=== PATIENT | female | born 1990 | race Caucasian/White ===

== ENCOUNTER 2023-08-11 06:44 | Inpatient (IN) | payer BC, SELFPAY ==
[2023-08-11] VITALS (9 sets, daily range): BP systolic 102–114; BP diastolic 63–79; PULSE 83–106; RESP 14–22; TEMP 36.3–36.7; O2SAT 92–100; BMI 24.8
--- NOTE | ~2023-08-11 | XR_ITS ---
XR abdomen gastric tube insert INDICATION: Evaluate NG tube position. TECHNIQUE: Limited KUB perform for evaluating NG tube . COMPARISON: CT dated 08/11/2023 FINDINGS: NG tube tip in the stomach. Visualized bowel gas pattern is unremarkable. IMPRESSION: 1: NG tube tip in the stomach. Reviewed, dictated and finalized at location B.
--- NOTE | ~2023-08-11 | CT_ITS ---
EXAMINATION: CT abdomen pelvis w con DATE: 08/11/2023 07:38 INDICATION: Bilateral lower quadrant pain TECHNIQUE: Computed tomography (CT) of the abdomen and pelvis was performed with 100 cc Omnipaque 350 intravenous contrast. The dose-length product was 318.54 mGy-cm. Automated exposure control and iter ative reconstruction technique were employed. COMPARISON: CT dated 08/13/2007 FINDINGS: Lung bases unremarkable. Heart size normal. No significant pleural or pericardial effusion. Status post cholecystectomy. There are dilated small bowel loops with air-fluid levels. The distal s mall bowel is decompressed. There is a possible transition in the upper central pelvis, axial image 1 04. There are surgical clips in the right lower abdomen, possibly from prior appendectomy. No acute o sseous abnormality. IMPRESSION: 1. Small bowel obstruction with possible transition in the upper central pelvis anteriorly. Reviewed, dictated and finalized at location B.
--- NOTE | ~2023-08-11 | XR_ITS ---
Small Bowel Series: Clinical history non-small obstruction Serial films demonstrating passage of barium from the duodenum to the colon show a normal small chase l mucosal pattern. There was no evidence of obstruction, mass lesion or inflammatory change. Oral co ntrast reaches large bowel by 2 hours postingestion. No extrinsic abnormality is identified. Impression: No significant abnormality. Reviewed, dictated and finalized at [facility]. Impression: No significant abnormality.
[2023-08-11 07:06] LABS: Basophils Percent Auto 0.7 % (0.2-1.2); Eosinophils Absolute Auto 0.2 K/mm3 (0-0.3); Eosinophils Percent Auto 3.1 % (0-4.4); Hematocrit 37.3 % (37.0-47.0); Hemoglobin 12.4 g/dL (12.0-15.0); Immature Granulocyte Absolute 0.01 K/mm3 (0.00-0.031); Immature Granulocyte Percent A 0.2 % (0-0.5); Lymphocytes Absolute Auto 1.14 K/mm3 (0.9-3.2); Lymphocytes Percent Auto 21.1 % (18.3-44.2); Mean Corpuscular HGB Conc 33.2 g/dl (32-36); Mean Corpuscular Hemoglobin 30.7 pg (26-34); Mean Corpuscular Volume 92.3 fl (80-100); Mean Platelet Volume 10.4 fl (7.4-10.4); Monocytes Absolute Auto 0.4 K/mm3 (0.1-0.6); Monocytes Percent Auto 7.6 % (2.6-8.5); Neutrophils Absolute Auto 3.6 K/mm3 (1.3-6.7); Neutrophils Percent Auto 67.3 % (45.5-73.1); Platelet Count Result 255 k/mm3 (150-375); Red Blood Count 4.04 M/mm3 (4.2-5.4); Red Cell Distribution Width 12.8 % (11.5-14.5); White Blood Count 5.4 K/mm3 (4.5-10.0)
[2023-08-11 07:17] LABS: Alanine Aminotransferase 16 U/L (6-35); Albumin Level 4.4 g/dL (3.5-5.1); Alkaline Phosphatase 61 U/L (38-126); Anion Gap 9 mmol/L (4-12); Aspartate Amino Transferase 20 U/L (14-36); Bilirubin,Total 1.1 mg/dL (0.2-1.3); Blood Urea Nitrogen 14 mg/dL (7-17); Calcium 9.1 mg/dL (8.4-10.2); Carbon Dioxide 22 mmol/L (22-30); Chloride 109 mmol/L (98-107); Estimated CRCL calculation 81 ml/min; Estimated Glomerular Filt Rate > 60; Glucose 101 mg/dL (65-110); Lipase 137 U/L (23-300); Potassium 3.9 mmol/L (3.4-5.0); Sodium 140 mmol/L (137-145)
[2023-08-11] MEDS: ONDANSETRON INJ 4 MG/2 ML VIAL IV PUSH ×4 (07:18→20:04)
[2023-08-11] MEDS: MORPHINE SULFATE (*CRX) 4 MG/ML INJ IV PUSH ×3 (07:19→20:04)
[2023-08-11 08:05] LABS: Appearance Urine Turbid (Clear); Bacteria Urine None Seen /hpf; Bilirubin Urine Negative (Negative); Blood Urine Negative (Negative); Color Urine Yellow (Yellow); Glucose Urine UA Negative (Negative); Ketones Urine Negative (Negative); Leukocyte Esterase Ur Negative LEU/UL (Negative); Nitrate Urine Negative (Negative); Non Pathogenic Casts 0-2; Protein Urine Negative (Negative); RBC Urine 0-2 /hpf (0-2); Squamous Epithelial Cell Urine None Seen /hpf (Few); WBC Urine 0-5 /hpf (0-3); pH Urine 7.5 (5.0-9.0)
[2023-08-11 08:12] LABS: Add Urine Microscopic? YES; Specific Grav Ur > 1.045 (1.001-1.035)
--- NOTE | 2023-08-11 08:22 | ED.ABDPAIN ---
HPI - Abdominal Pain General Chief Complaint: Abdominal Pain Stated Complaint: abd pain Time Seen by Provider: 08/11/23 06:58 History of Present Illness HPI narrative: Patient is a 33-year-old female who presents ER with abdominal pain. Sudden onset after drinking coffee this morning. She then took Mylanta which made it worse. Cramping. She did have a bowel movement this morning. No fevers or chills or sweats. She has had a cholecystectomy in the past. Pain radiates down into the lower abdomen. Related Data Home Medications Medication Instructions Recorded Confirmed bupropion HCl 150 mg 24 hr tablet, 150 mg PO DAILY 08/11/23 08/11/23 extended release melatonin 3 mg tablet 3 mg PO HS PRN Insomnia 08/11/23 08/11/23 topiramate 100 mg tablet 100 mg PO HS 08/11/23 08/11/23 Allergies Allergy/AdvReac Type Severity Reaction Status Date / Time lamotrigine [From Lamictal] Allergy Rash Verified 08/11/23 06:52 Review of Systems Review of Systems: All systems reviewed & are unremarkable except as noted in HPI and below Constitutional: Constitutional: Reports no additional constitutional complaints ENT: Reports system reviewed and no additional complaints, except as documented Cardiovascular: Cardiovascular: Reports no additional cardiovascular complaints Respiratory: Respiratory: Reports no additional respiratory complaints Gastrointestinal: Gastrointestinal: Reports abdominal pain, Denies diarrhea, Denies nausea and Denies vomiting Musculoskeletal: Musculoskeletal: Reports no additional musculoskeletal complaints PMF Past Medical History Medical History (Updated 08/11/23 @ 16:39 by Delbert Rosales MD) Healthy female adult Surgical History Surgical History (Updated 08/11/23 @ 16:39 by Delbert Rosales MD) History of cholecystectomy Social History Social History Smoking status: Never smoker Alcohol intake: never Substance use: never Substance use type: does not use Do You Feel Safe in your Home?: Yes Lack of Transportation: No Lack of Food: Never True Current Housing: I Have Housing Concerned About Future Housing: No Difficulty Paying Gas/Electric Bills: No Difficulty Paying for Meds: No Currently Unemployed: No Education: Associate Degree Difficulty w/ Childcare or Family Care: No Spiritual care concerns: No Exam Narrative: GENERAL: Well-appearing, well-nourished, and in no acute distress. HEAD: Normocephalic, atraumatic. ENT: Mucous membranes moist. NECK: Supple. CHEST: Clear to auscultation. No respiratory distress. HEART: Regular rate and rhythm. Normal peripheral pulses. ABDOMEN: Soft, mild diffuse tenderness worse in the lower quadrants the abdomen, nondistended. EXTREMITIES: Normal range of motion. No edema. SKIN: Warm, dry, no rash. NEURO: No focal deficits. Alert and oriented x3. PSYCH: Normal mood and affect. Course Course Emergency Course: surgery will admit primarily. Patient still with pain so NG tube will be placed. Vital Signs Vital signs: Vital Signs Temperature 97.4 F L 08/11/23 06:52 Pulse Rate 89 08/11/23 06:52 Respiratory Rate 16 08/11/23 06:52 Blood Pressure 110/78 08/11/23 06:52 Pulse Oximetry 100 08/11/23 06:52 Oxygen Delivery Room Air 08/11/23 06:52 Temperature 97.6 F 08/11/23 14:00 Pulse Rate 83 08/11/23 14:00 Respiratory Rate 14 08/11/23 14:00 Blood Pressure 110/70 08/11/23 14:00 Pulse Oximetry 100 08/11/23 14:00 Oxygen Delivery Room Air 08/11/23 06:52 MDM - Abdominal Pain Lab Data 08/11/23 07:00 08/11/23 07:00 Labs: Lab Results 08/11/23 08/11/23 Range/Units 07:00 07:53 WBC 5.4 (4.5-10.0) K/mm3 RBC 4.04 L (4.2-5.4) M/mm3 Hgb 12.4 (12.0-15.0) g/dL Hct 37.3 (37.0-47.0) % MCV 92.3 (80-100) fl MCH 30.7 (26-34) pg MCHC 33.2 (32-36) g/dl RD
[2023-08-11] MEDS: SODIUM CHLORIDE 0.9% IV 1,000 ML 125 ML IV CONT ×2 (08:42→20:04)
--- NOTE | 2023-08-11 09:38 | ADMGEN ---
This patient, Tonya Santana, was admitted to [address] [facility] Surg Room 326-01. Patient/family oriented to hospital policies and general routines including ID bracelet, bed and alarms, visiting hours, pain management, procedures, bathroom and other care routines, personal items, smoking policy, room service/diet, and visiting hours. Information on how to activate the Rapid Response Team has been discussed. Patient/Family are encouraged to report perceived risks to care and to ask questions if they do not understand what they are told or what they should do.
--- NOTE | 2023-08-11 12:57 | PM.IMHP ---
H&P: HPI History of Present Illness Date/Time: 08/11/23 12:57 Chief Complaint: abdominal pain Narrative: The patient is a 33-year-old female presenting to the emergency department complaining of crampy abdominal pain. The patient reports that the pain been ongoing for the last few days and progressively worsening. The patient reports associated nausea vomiting, poor appetite. The patient reports she had a bowel movement this morning. The patient reports decreased flatus. Workup, including imaging, was significant for small bowel obstruction. The patient with a history of previous cholecystectomy. The patient denies previous episodes. Review of Systems Review of Systems: All systems reviewed & are unremarkable except as noted in HPI and below PMFSH Social History Social History Smoking status: Never smoker Alcohol intake: never Substance use: never Substance use type: does not use Do You Feel Safe in your Home?: Yes Lack of Transportation: No Lack of Food: Never True Current Housing: I Have Housing Concerned About Future Housing: No Difficulty Paying Gas/Electric Bills: No Difficulty Paying for Meds: No Currently Unemployed: No Education: Associate Degree Difficulty w/ Childcare or Family Care: No Spiritual care concerns: No Meds Home Medications and Allergies Home Medications Medication Instructions Recorded Confirmed Type bupropion HCl 150 mg 24 hr tablet, 150 mg PO DAILY 08/11/23 08/11/23 History extended release melatonin 3 mg tablet 3 mg PO HS PRN Insomnia 08/11/23 08/11/23 History topiramate 100 mg tablet 100 mg PO HS 08/11/23 08/11/23 History Allergies Allergy/AdvReac Type Severity Reaction Status Date / Time lamotrigine [From Lamictal] Allergy Rash Verified 08/11/23 06:52 Vital Signs Vital Signs - 24 hr 08/11/23 06:52 08/11/23 06:54 08/11/23 07:01 Temperature 36.3 C L Pulse Rate 89 106 H 83 Respiratory Rate 16 22 H 15 Blood Pressure 110/78 110/78 110/78 Pulse Oximetry 100 100 92 Oxygen Delivery Room Air 08/11/23 08:58 08/11/23 09:00 08/11/23 09:02 Temperature Pulse Rate 105 H 97 100 Respiratory Rate 17 17 14 Blood Pressure 107/76 112/79 Pulse Oximetry 100 Oxygen Delivery 08/11/23 09:30 Temperature 36.6 C Pulse Rate 83 Respiratory Rate 14 Blood Pressure 102/63 Pulse Oximetry 100 Oxygen Delivery Exam Const: General: cooperative, comfortable, no acute distress and average body habitus HENMT: Head: normal to inspection, normocephalic and atraumatic Eyes: General: appearance normal, both eyes and all related structures Neck: Neck: normal visual inspection, full ROM and no lymphadenopathy Resp: Auscultation: clear to auscultation bilaterally Cardio: Rate: regular rate Rhythm: regular rhythm GI: Inspection: normal to inspection and distended GI Palp: Yes abdominal tenderness, Yes Soft to palpation, Yes Tenderness to palpation present (GI), No Guarding due to palpation present (GI) and No Rigid due to palpation Skin: General skin exam: normal color and no rashes or lesions noted Neuro: General: patient oriented x3 and CN's II-XI intact bilaterally Extrem: General: normal to inspection and full ROM H&P: Results Labs Labs: Short CBC 08/11/23 Range/Units 07:00 WBC 5.4 (4.5-10.0) K/mm3 Hgb 12.4 (12.0-15.0) g/dL Hct 37.3 (37.0-47.0) % Plt Count 255 (150-375) k/mm3 BMP 08/11/23 07:00 Sodium 140 Potassium 3.9 Chloride 109 H Carbon Dioxide 22 BUN 14 Creatinine 0.70 Glucose 101 Calcium 9.1 Liver Function 08/11/23 Range/Units 07:00 Total Bilirubin 1.1 (0.2-1.3) mg/dL AST 20 (14-36) U/L ALT 16 (6-35) U/L Alkaline Phosphatase 61 (38-126) U/L Albumin 4.4 (3.5-5.1) g/dL Urine 08/11/23 Range/Units 07:53 Urine Color Yellow (Yellow) Urine Appearance Turbid H (Clear) Urine p
[2023-08-12] MEDS: MORPHINE SULFATE (*CRX) 4 MG/ML INJ IV PUSH (04:00)
[2023-08-12] MEDS: ONDANSETRON INJ 4 MG/2 ML VIAL IV PUSH ×2 (04:00→08:50)
[2023-08-12 04:51] VITALS: BP 97/60; PULSE 79; RESP 14; TEMP 36.2; O2SAT 100
[2023-08-12] MEDS: SODIUM CHLORIDE 0.9% IV 1,000 ML 125 ML IV CONT ×3 (05:00→20:49)
[2023-08-12] MEDS: ACETAMINOPHEN 325 MG TABLET 650 MG PO ×2 (08:47→20:48)
--- NOTE | 2023-08-12 10:09 | PM.PNGS ---
Progress Note: A&P Assessment and Plan (1) Small bowel obstruction: Code(s): K56.609 - Unspecified intestinal obstruction, unspecified as to partial versus complete obstruction Status: Acute Assessment and Plan: SBS reviewed and normal, +bowel fxn, will dc NG and start clears, ADAT, OOB Subjective Subjective Date/Time Seen: 08/12/23 10:09 Interval history: still c some nausea, no abd pain, multiple BMs overnight Review of Systems Review of Systems: All systems reviewed & are unremarkable except as noted in HPI and below Exam Const: General: cooperative, comfortable and no acute distress Resp: Auscultation: clear to auscultation bilaterally Cardio: Rate: regular rate Rhythm: regular rhythm GI: Inspection: normal to inspection and non-distended GI Palp: No abdominal tenderness and Yes Soft to palpation Objective Data Vital Signs Vital Signs: Vital Signs - 24 hr 08/11/23 14:00 08/11/23 20:34 08/12/23 04:51 Temperature 36.4 C 36.7 C 36.2 C L Pulse Rate 83 93 79 Respiratory Rate 14 16 14 Blood Pressure 110/70 114/70 97/60 L Pulse Oximetry 100 100 100 Intake/Output Intake/Output: Intake & Output 08/09/23 08/10/23 08/11/23 08/12/23 23:59 23:59 23:59 23:59 Intake Total 1000 1000 Balance 1000 1000 Meds/Results Medications: Active Medications Generic Name Dose Route Start Last Admin Trade Name Freq PRN Reason Stop Dose Admin Acetaminophen 650 mg 08/12/23 08:20 08/12/23 08:47 Acetaminophen 325 Mg Tablet PO 650 mg Q6H PRN Administration Mild Pain (1-3) or Fever Sodium Chloride 1,000 mls @ 125 mls/hr 08/11/23 08:25 08/12/23 05:00 Normal Saline Iv IV CONT 125 mls/hr .Q8H ANNA MARIE Administration Morphine Sulfate 4 mg 08/11/23 08:22 08/12/23 04:00 Morphine Sulfate (*Crx) 4 Mg/Ml Inj IV PUSH 4 mg Q2H PRN Administration Pain Rated 7-10 Ondansetron HCl 4 mg 08/11/23 08:22 08/12/23 08:50 Ondansetron Inj 4 Mg/2 Ml Vial IV PUSH 4 mg Q4H PRN Administration Nausea Radiology Results: ITS Impressions Abdomen/Pelvis CT 08/11/23 07:45 IMPRESSION: 1. Small bowel obstruction with possible transition in the upper central pelvis anteriorly. Abdomen X-Ray 08/11/23 09:08 IMPRESSION: 1: NG tube tip in the stomach. Small Bowel X-Ray 08/11/23 16:46 Impression: No significant abnormality.
[2023-08-12 14:00] VITALS: BP 89/59; PULSE 92; RESP 20; TEMP 36.5; O2SAT 100
[2023-08-12 20:19] VITALS: BP 93/65; PULSE 104; RESP 16; TEMP 36.8; O2SAT 98
[2023-08-13] MEDS: SODIUM CHLORIDE 0.9% IV 1,000 ML 125 ML IV CONT (03:27)
[2023-08-13] MEDS: ACETAMINOPHEN 325 MG TABLET 650 MG PO ×2 (03:28→10:26)
[2023-08-13 04:35] VITALS: BP 100/60; PULSE 82; RESP 16; TEMP 36.6; O2SAT 99
[2023-08-13 08:23] VITALS: O2SAT 99
--- NOTE | 2023-08-13 10:25 | PM.DS ---
DS: Admitting Diagnosis Discharge Date 08/13/2023 Admitting Diagnosis small-bowel obstruction DS: Discharge Diagnosis Discharge Diagnosis (1) Small bowel obstruction: Code(s): K56.609 - Unspecified intestinal obstruction, unspecified as to partial versus complete obstruction Status: Acute Assessment and Plan: resolved, exam completely benign, continue regular diet, follow-up 2 weeks DS: Summary Hospital Course Reason for hospitalization: small-bowel obstruction Hospital Course: The patient is a 33-year-old female presenting to the emergency department complaining severe, crampy abdominal pain. The patient reports associated nausea and vomiting. Workup in the emergency department, including imaging, was significant for small bowel obstruction. Given these findings, the patient was admitted to the surgical service. Conservative management with NG decompression and bowel rest was initiated. The patient had a small bowel series that was largely unremarkable. Soon afterwards, the patient began to have bowel function including multiple bowel movements. At this point, we were able to remove her NG tube and start a clear liquid diet. Did have some nausea, although her abdominal pain largely resolved. We were able to slowly advance her diet which she is now tolerating without difficulty. At this point, her exam is completely benign and she is tolerating a regular diet. She will be discharged home with follow-up in 2 weeks. Status at Discharge Functional status at discharge: independent ambulation Overall status at discharge: patient is back to baseline Time Spent with Patient Time attestation: Total time spent providing and/or coordinating discharge services: Time spent: Less than 30 minutes Exam Const: General: cooperative, comfortable and no acute distress Resp: Auscultation: clear to auscultation bilaterally Cardio: Rate: regular rate Rhythm: regular rhythm GI: Inspection: normal to inspection and non-distended GI Palp: No abdominal tenderness and Yes Soft to palpation Discharge Plan Discharge Attending physician on discharge: Anjali Wright Discharging Clinician: Anjali Wright Anticipated Discharge Date/Time: 08/13/23 10:24 Patient Disposition: Home, Self-Care Activity: unlimited Diet: as tolerated Patient Instructions: Antibiotic Form Stand Alone Forms: General Discharge Information Follow-up/Referrals: Anjali Wright MD [Physician] - 2 Weeks Discharge Medications: Continued melatonin 3 mg Tablet 3 mg PO HS PRN (Reason: Insomnia) topiramate 100 mg tablet 100 mg PO HS bupropion HCl 150 mg tablet extended release 24 hr 150 mg PO DAILY Date of admission: 08/11/23 12:06 Primary Care Provider: PHYSICIAN NOT ON STAFF,NONSTAFF Admitting Provider: Anjali Wright Attending physician on admission: Anjali Wright Condition: Stable
== END 2023-08-13 11:15 | disposition home or self-care (01) | DRG 247 ==
LOC: ANHED 08:22 → ANH3MEDSUR 08:48
PROVIDERS: Emergency Medicine; Admitting Provider Surgery; Emergency Provider Emergency Medicine; Visit Provider Surgery
DX: K56.609 Unspecified intestinal obstruction, unspecified as to partial versus complete obstruction (principal); Z90.49 Acquired absence of other specified parts of digestive tract
CPT/HCPCS: 36415; 74177; 74250; 80053; 81001; 81025; 83690; 85025; 96374; 96375; 99285; A9270; G0378; J2270; J2405; J7030; Q9967

== ENCOUNTER 2024-02-14 05:47 | Emergency (ER) | payer BC, OTHER, SELFPAY ==
[2024-02-14 05:53] VITALS: BP 132/87; PULSE 95; RESP 20; TEMP 36.8; O2SAT 100
--- NOTE | 2024-02-14 07:21 | ECG_ITS ---
Test Date: 2024-02-14 07:45:15 Measurements Intervals [place] Rate: 82 P: 57 MI: 148 QRS: 67 QRSD: 82 T: 63 QT: 364 QTc: 427 Interpretive Statements SINUS RHYTHM No previous ECG available for comparison Electronically Signed On 02-14-2024 18:40:36 [employer]PERT [employer] by Mandeep Johnston M.D.
--- NOTE | 2024-02-14 07:41 | ED_ITS ---
HPI - Abdominal Pain General Chief Complaint: Abdominal Pain Stated Complaint: abd pain Time Seen by Provider: 02/14/24 07:21 History of Present Illness HPI narrative: Patient with history of GERD presents with epigastric pain, nausea vomiting, pain seems to go to her back, she tried GI cocktail at home with some improvement in her symptoms. Related Data Home Medications ?Medication ?Instructions ?Recorded ?Confirmed ?Last Taken ?Type bupropion HCl 150 mg 24 hr tablet, 150 mg PO DAILY 08/11/23 08/28/23 Unknown History extended release melatonin 3 mg tablet 3 mg PO HS PRN Insomnia 08/11/23 08/28/23 Unknown History topiramate 100 mg tablet 100 mg PO HS 08/11/23 08/28/23 Unknown History Allergies Allergy/AdvReac Type Severity Reaction Status Date / Time lamotrigine (From Lamictal) Allergy Rash Verified 08/28/23 09:54 Review of Systems 2 Review of Systems: All systems reviewed & are unremarkable except as noted in HPI and below PMFSH Past Medical History Medical History Healthy female adult Surgical History Surgical History History of cholecystectomy Social History Social History Smoking status: Never smoker Alcohol intake: never Substance use: never Substance use type: does not use Do You Feel Safe in your Home?: Yes Lack of Transportation: No Lack of Food: Never True Current Housing: I Have Housing Concerned About Future Housing: No Difficulty Paying Gas/Electric Bills: No Difficulty Paying for Meds: No Currently Unemployed: No Education: Associate Degree Difficulty w/ Childcare or Family Care: No Spiritual care concerns: No Exam 2 Narrative: EXAMINATION OF ORGAN SYSTEMS/BODY AREAS: Constitutional: Vital signs per nursing GENERAL:[No acute distress, non-toxic appearing.] HEAD: Normal with no signs of head trauma. EYES: EOMI, conjunctiva normal ENT: Hearing grossly intact LUNGS: Nonlabored breathing. HEART: [Regular rate and rhythm] ABD: [Soft], [nontender to palpation] EXT: Normal range of motion SKIN: [No rashes or lesions.] NEURO: [Alert and oriented x 3. No gross focal sensory or strength deficits.] PSYCH: Normal affect Course Vital Signs Vital signs: Vital Signs Temperature 98.2 F 02/14/24 05:53 Pulse Rate 95 02/14/24 05:53 Respiratory Rate 20 02/14/24 05:53 Blood Pressure 132/87 02/14/24 05:53 Pulse Oximetry 100 02/14/24 05:53 Oxygen Delivery Room Air 02/14/24 05:53 Temperature 98.3 F 02/14/24 09:05 Pulse Rate 90 02/14/24 09:05 Respiratory Rate 16 02/14/24 09:05 Blood Pressure 130/82 02/14/24 09:05 Pulse Oximetry 100 02/14/24 09:05 Oxygen Delivery Room Air 02/14/24 05:53 MDM - Abdominal Pain MDM Narrative Medical decision making narrative: 1) Differential diagnosis: Pancreatitis, SBO, gastritis/PUD 2) Comorbidities: GERD 3) External notes reviewed: General surgery office notes 4) History sources independently obtained from: [] 5) Discussion of management with: [] 6) Independent interpretation of: EKG sinus rhythm rate 82, normal CA, QRS, QTC, no ST elevations depressions, normal axis, no signs of acute ischemia or arrhythmia 7) Diagnostic tests or therapies considered but not ordered: CT, after re- evaluation of patient and discussion, she feels much better and declined CT 8) Social determinants of health: [] 9) Shared decision making: Patient with epigastric discomfort, given Zofran and Pepcid and Protonix on re- evaluation symptoms completely resolved, she feels great, abdomen soft nontender, would like to go home and feels quite reasonable, return precautions discussed she will follow up with Gastroenterology Lab Data 02/14/24 07:54 02/14/24 07:54 Labs: Lab Results 02/14/24 Range/Units 07:54 WBC 7.5 (4.5-10.0) K/mm3 RBC 4.58 (4.2-5.4) M/mm3 Hgb 13.7 (12.0-15.0) g/dL Hct 41.1 (37.0-47.0) % MCV 89.7 (80-100) fl MCH 29.9 (26-34) pg MCHC 33.3 (32-36) g/dl RDW 12.5 (11.5-14.5) % Plt Count 303 (150-375) k/mm3 MPV 10.9 H (7.4-10.4) fl Immature Gran % (Auto) 0.4 (0-0.5) % Neut % (Auto) 80.7 H (45.5-73.1) % Lymph % (Auto) 10.6 L (18.3-44.2) % [place] % (Auto) 6.6 (2.6-8.5) % Eos % (Auto) 1.2 (0-4.4) % Baso % (Auto) 0.5 (0.2-1.2) % Lymph # (Auto) 0.79 L (0.9-3.2) K/mm3 [place] # (Auto) 0.5 (0.1-0.6) K/mm3 Eos # (Auto) 0.1 (0-0.3) K/mm3 Baso # (Auto) 0.0 (0.0-0.1) K/mm3 Abs Immat Gran (auto) 0.03 (0.00-0.031) K/mm3 Absolute Neuts (auto) 6.0 (1.3-6.7) K/mm3 Absolute Nucleated RBC 0.000 (0.0-0.012) K/mm3 Nucleated RBC % 0.0 (0.0-0.2) % Sodium 141 (137-145) mmol/L Potassium 4.0 (3.4-5.0) mmol/L Chloride 108 H (98-107) mmol/L Carbon Dioxide 25 (22-30) mmol/L Anion Gap 8 (4-12) mmol/L BUN 12 (7-17) mg/dL Creatinine 0.70 (0.7-1.0) mg/dL Estim Creat Clear Calc 92 ml/min Estimated GFR > 60 (59 - ) Glucose 94 (65-110) mg/dL Calcium 9.6 (8.4-10.2) mg/dL Total Bilirubin 1.0 (0.2-1.3) mg/dL AST 273 H (14-36) U/L ALT 106 H (6-35) U/L Alkaline Phosphatase 87 (38-126) U/L Total Protein 8.0 (6.3-8.2) g/dL Albumin 4.7 (3.5-5.1) g/dL Lipase 157 (23-300) U/L Discharge Plan Discharge Clinical Impression: Acute epigastric pain Patient Disposition: Home, Self-Care Condition: Stable Instructions: Epigastric Pain (ED) Additional Instructions: Please follow-up with Gastroenterology, try to avoid any foods that may be triggering such as greasy, fried, spicy foods, alcohol, coffee, NSAIDs. You can take the medications as prescribed. Come back to the ER if symptoms worsen. Patient Language: Luxembourgish Prescriptions: New famotidine 20 mg tablet 20 mg PO DAILY Qty: 30 0RF lidocaine HCl [Lidocaine Viscous] 2 % solution 10 ml PO BID PRN (Reason: abdominal pain) Qty: 100 0RF alum-mag hydroxide-simeth [Maalox Advanced] 200-200-20 mg/5 mL suspension 10 ml PO QID PRN (Reason: dyspepsia) Qty: 300 0RF Rx Instructions: administer between meals and at bedtime No Action melatonin 3 mg Tablet 3 mg PO HS PRN (Reason: Insomnia) topiramate 100 mg tablet 100 mg PO HS bupropion HCl 150 mg tablet extended release 24 hr 150 mg PO DAILY Follow-up/Referrals: PHYSICIAN NOT ON STAFF,NONSTAFF [Non-Staff] -
[2024-02-14] MEDS: FAMOTIDINE 20 MG/2 ML VIAL IV PUSH (07:51)
[2024-02-14] MEDS: PANTOPRAZOLE SODIUM IV 40 MG VIAL IV PUSH (07:51)
[2024-02-14] MEDS: ONDANSETRON INJ 4 MG/2 ML VIAL IV PUSH (07:51)
[2024-02-14 08:09] LABS: Alanine Aminotransferase 106 U/L (6-35); Albumin Level 4.7 g/dL (3.5-5.1); Alkaline Phosphatase 87 U/L (38-126); Anion Gap 8 mmol/L (4-12); Aspartate Amino Transferase 273 U/L (14-36); Blood Urea Nitrogen 12 mg/dL (7-17); Calcium 9.6 mg/dL (8.4-10.2); Carbon Dioxide 25 mmol/L (22-30); Chloride 108 mmol/L (98-107); Estimated CRCL calculation 92 ml/min; Estimated Glomerular Filt Rate > 60; Glucose 94 mg/dL (65-110); Lipase 157 U/L (23-300); Sodium 141 mmol/L (137-145)
[2024-02-14 08:10] LABS: Basophils Percent Auto 0.5 % (0.2-1.2); Eosinophils Absolute Auto 0.1 K/mm3 (0-0.3); Eosinophils Percent Auto 1.2 % (0-4.4); Hematocrit 41.1 % (37.0-47.0); Hemoglobin 13.7 g/dL (12.0-15.0); Immature Granulocyte Absolute 0.03 K/mm3 (0.00-0.031); Immature Granulocyte Percent A 0.4 % (0-0.5); Lymphocytes Absolute Auto 0.79 K/mm3 (0.9-3.2); Lymphocytes Percent Auto 10.6 % (18.3-44.2); Mean Corpuscular HGB Conc 33.3 g/dl (32-36); Mean Corpuscular Hemoglobin 29.9 pg (26-34); Mean Corpuscular Volume 89.7 fl (80-100); Mean Platelet Volume 10.9 fl (7.4-10.4); Monocytes Absolute Auto 0.5 K/mm3 (0.1-0.6); Monocytes Percent Auto 6.6 % (2.6-8.5); Neutrophils Percent Auto 80.7 % (45.5-73.1); Platelet Count Result 303 k/mm3 (150-375); Red Blood Count 4.58 M/mm3 (4.2-5.4); Red Cell Distribution Width 12.5 % (11.5-14.5); White Blood Count 7.5 K/mm3 (4.5-10.0)
[2024-02-14 09:05] VITALS: BP 130/82; PULSE 90; RESP 16; TEMP 36.8; O2SAT 100
== END 2024-02-14 09:07 | disposition home or self-care (01) ==
PROVIDERS: Emergency Provider Emergency Medicine
DX: R10.13 Epigastric pain (principal); K21.9 Gastro-esophageal reflux disease without esophagitis; Z90.49 Acquired absence of other specified parts of digestive tract
CPT/HCPCS: 36415; 80053; 83690; 85025; 93005; 96374; 96375; 99284; J2405; J2470

== ENCOUNTER 2024-11-21 12:13 | Emergency (ER) | payer OTHER, SELFPAY ==
--- OUTSIDE RECORDS SUMMARY | 2016-03-29 18:00 | XMS_ITS | Continuity of Care Document ---
Author Organization [facility] Address [address] [place] [address] Phone Care Team Providers Care Emergency Room Doctor Name Role Phone Unavailable Unavailable Unavailable Advance Directives Directive Yes / No Effective Date File Name No Information Encounters Encounter Description Practice Location Reason(s) For Visit Diagnoses Date Provider Providers Copied on Encounter [facility], [address] [facility], [place], [place], [id number], [place] tel:[phone] [facility] OBS/OUTPAT IENT No Information No Information Referring Provider: Anisha Belcher, [address] [place] [address], [address]. tel:[phone] Family History Family Member Type Diagnosis Age At Onset No Information Payers Payer name Insurance type Covered republican ID Authoriza tion(s) No Information Social History Type Description Quantity Date Captured Comments Sex Female Smoking Status No Information Chief Complaint And Reason For Visit No Information History Of Present Illness Encounter Date Complaint History Of Prese nt Illness No Information Instructions Date Instruction Additional Infor mation No Information Assessments Type Assessment Date No Information
--- OUTSIDE RECORDS SUMMARY | 2016-03-29 18:00 | XMS_ITS | Continuity of Care Document ---
Author Organization [facility] Address [address] [place] [address] Phone Care Team Providers Care Medical Coder Name Role Phone Unavailable Unavailable Unavailable Advance Directives Directive Yes / No Effective Date File Name No Information Encounters Encounter Description Practice Location Reason(s) For Visit Diagnoses Date Provider Providers Copied on Encounter [facility], [address] [facility], [place], [place], [id number], [place] tel:[phone] [facility] OBS/OUTPAT IENT No Information No Information Referring Provider: Anisha Belcher, [address] [place] [address], [address]. tel:[phone] Family History Family Member Type Diagnosis Age At Onset No Information Payers Payer name Insurance type Covered alliance party ID Authoriza tion(s) No Information Social History Type Description Quantity Date Captured Comments Sex Female Smoking Status No Information Chief Complaint And Reason For Visit No Information History Of Present Illness Encounter Date Complaint History Of Prese nt Illness No Information Instructions Date Instruction Additional Infor mation No Information Assessments Type Assessment Date No Information
--- OUTSIDE RECORDS SUMMARY | 2024-11-21 12:15 | XMS_ITS | Encounter Summary ---
Author Organization [facility] Address [address] [place] [address] Care Team Providers Care Transmission Builder Name Role Phone Milton Zimmerman MD Primary Care Provider [phone] Encounter Details Date Type Department Care Team (Late st Contact Info) Description 10/30/2024 Results Follow-Up [facility] [address] [place] [address] Marybel Decker, [facility] [address] [place] [address] POC URINALYSIS DIPSTICK AUTOMATED, POC , URINE, URINE CULTURE Social History Tobacco Use Types Packs/Day Years Used Date Smoking Tobacco: Never Passive Smoke Exposure: Never Smokeless Tobacco: Never Alcohol Use Standard Drinks/Week Comments Yes 0 (1 standard drink = 0.6 oz pur e alcohol) socially, none with Feeling Safe Answer Date Recorded Are you in a relationship wi th someone who hurts you emotionally and/or physically? 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
--- OUTSIDE RECORDS SUMMARY | 2024-11-21 12:15 | XMS_ITS | Encounter Summary ---
Author Organization [facility] Address [address] [place] [address] Care Team Providers Care First Aid Attendant Name Role Phone Milton Zimmerman MD Primary Care Provider [phone] Encounter Details Date Type Department Care Team (Late st Contact Info) Description 08/24/2014 Lab Requisition [facility] [address] [place] [id number] [facility], External Provider [address] [facility] [place] [address] Social History Tobacco Use Types Packs/Day Years Used Date Smoking Tobacco: Never Comments Unknown Sex and Gender Information Value Date Recorded Sex Assigned at Not on file 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 Gender Identity Not on file Sexual Orientation Not on file documented as of this encounter Plan of Treatment Not on file documented as of this encounter Procedures Procedure Name Priority Date/Time Associated Diagnosis Comments HIV DETECTION W/REFLX CONFIRMATION Routine 08/24/2014 12:40 PM CDT HEPATITIS C ANTIBODY Routine 08/24/2014 12:40 PM CDT ALT Routine 08/24/2014 12:40 PM CDT documented in this encounter Results * HIV ANTIBODY W/REFLX CONFIRMATION (08/24/2014 12:40 PM CDT) [facility] HIV-1/2 AG AND AB SCREEN Negative Negative 08/25/2014 4:49 PM CDT [facility] Comment: Negative result does not rule out HIV infection. If acute HIV infection is suspected in a high-risk individual, submit plasma specimen for HIV-1 RNA quantification test (HIVDQ) and/or HIV-2 DNA/RNA test (FHV2Q). Test Performed by: [place] [address] Gold Prospector: Thomas Kearney II, M.D., Ph.D. Blood specimen (specimen) 08/24/2014 12:40 PM CDT 08/24/2014 10:07 PM CDT us External Provider [facility] CHEMISTRY ORDERABLES Fin al Result [facility] * HEPATITIS C ANTIBODY (08/24/2014 12:40 PM CDT) Pathologist [facility] HEPATITIS C AB Non-reacti ve Non-react xiang 08/24/2014 11:09 PM CDT [facility] Comment: If a patient is known to be at high risk for HCV infection, or is symptomatic, and the physician's suspicion of HCV infection is high, HCV RNA testing is often employed and is of diagnostic value, even after an initial negative anti-HCV test result. Signal to cutoff index is <1.00. Blood 08/24/2014 12:4 0 PM CDT 08/24/2014 10:07 PM CDT External Provider [facility] CHEMISTRY ORDERABLES Fin al Result Performing Organization Address City/[facility]/ZIP Co de Phone Number [facility] CLIA# [id number] [address] [facility] [place] [address] * ALT (08/24/2014 12:40 PM CDT) Pathologist [facility] ALT 12 <34 U/L 08/24/2014 10:52 PM CDT [facility] Blood 08/24/2014 12:4 0 PM CDT 08/24/2014 10:07 PM CDT External Provider [facility] CHEMISTRY ORDERABLES Fin al Result [facility]# [id number] [address] [facility] [place] [facility] [place] [address] documented in this encounter Visit Diagnoses Not on filedocumented in this encounter Additional Health Concerns Infection Onset Date Last Indicated Resolved Time R/O COVID-19 01/12/2023 01/12/2023 01/12/2023 7:53 PM FIREWALL ADMINISTRATOR documented as of this encounter Care Teams First Aid Attendant Relationship Specialty Start Date End Date Milton Zimmerman MD PCP - General Family Practice 01/01/22 documented as of this encounter
--- NOTE | 2024-11-21 12:21 | ED_ITS ---
HPI - Female Genitourinary General Chief complaint: Urogenital-Female Stated complaint: UTI Time Seen by Provider: 11/21/24 12:22 Source: patient Mode of arrival: ambulatory Limitations: no limitations History of Present Illness HPI Narrative: Tonya is a 34-year-old female patient presenting to the clinic today with complaints of a possible UTI. She reports on October 28 she was seen at a urgent care and was diagnosed with the UTI and prescribed Macrobid. Her urine culture came back positive for E coli with 50,200 1000 colonies. States after a few days of taking the Macrobid her symptoms were improving so she went to another urgent care and was given prescription for Augmentin to cover her infection. She has finished a 7 day course of Augmentin and states that she is still having burning with urination, some urgency, and some burning outside the vagina. Denies any itching, vaginal discharge, or odor. She denies any concerns for STIs. Last menstrual period was 2 weeks ago. No concern for pre gnancy. No fevers, chills, body aches. Denies any back pain or abdominal pain. No nausea vomiting or diarrhea. Related Data Allergies Allergy/AdvReac Type Severity Reaction Status Date / Time lamotrigine (From Lamictal) Allergy Rash Verified 11/21/24 12:22 Review of Systems Review of Systems: Pertinent positives per HPI. Patient denies any fever, chills, rash, headache, visual changes, dizziness, cough, runny nose, sore throat, shortness of breath, chest pain, palpitations, nausea, vomiting, diarrhea, constipation, abdominal pain. [facility] Past Medical History Medical History Healthy female adult Surgical History Surgical History History of cholecystectomy Social History Social History Smoking status: Never smoker Alcohol intake: never Substance use: never Substance use type: does not use Do You Feel Safe in your Home?: Yes Lack of Transportation: No Lack of Food: Never True Current Housing: I Have Housing Concerned About Future Housing: No Difficulty Paying Gas/Electric Bills: No Difficulty Paying for Meds: No Currently Unemployed: No Education: Associate Degree Difficulty w/ Childcare or Family Care: No Spiritual care concerns: No Comments At the time of my signature, I reviewed and agree with the nursing past medical, surgical, social, and family history. There is no relevant family history pertinent to the patient complaint. Exam Narrative: General: Well-developed, well nourished, in no apparent distress. Head: Normocephalic, atraumatic. Cardio: Regular rate and rhythm, s1 and s2 normal, no murmur appreciated. Resp: Clear to auscultation bilaterally, no rhonchi, rales, wheezing or rubs. Abdomen: Soft, pliable, bowel sounds present in all quadrants, non-tender to palpation, no organomegly, no CVAT tenderness. : Deferred Course Course Emergency Course: Portions of this record may have been created with voice recognition software. Level of Care: Express Care Visit Vital Signs Vital signs: Vital Signs Temperature 36.6 C 11/21/24 12:22 Pulse Rate 91 11/21/24 12:22 Respiratory Rate 18 11/21/24 12:22 Blood Pressure 124/87 11/21/24 12:22 Pulse Oximetry 100 11/21/24 12:22 Oxygen Delivery Room Air 11/21/24 12:22 Temperature 36.6 C 11/21/24 12:22 Pulse Rate 91 11/21/24 12:22 Respiratory Rate 18 11/21/24 12:22 Blood Pressure 124/87 11/21/24 12:22 Pulse Oximetry 100 11/21/24 12:22 Oxygen Delivery Room Air 11/21/24 12:22 Vital signs reviewed MDM - Female Genitourinary MDM Narrative Medical decision making narrative: At the time of visit patient is resting comfortably on the exam table. Patient appears to be nontoxic. Complaints of a possible UTI. She reports on October 28 she was seen at a urgent care and was diagnosed with the UTI and prescribed Macrobid. Her urine culture came back positive for E coli with 50,200 1000 colonies. States after a few days of taking the Macrobid her symptoms were improving so she went to another urgent care and was given prescription for Augmentin to cover her infection. She has finished a 7 day course of Augmentin and states that she is still having burning with urination, some urgency, and some burning outside the vagina. Denies any itching, vaginal discharge, or odor. She denies any concerns for STIs. States she is and has been in a monogamous relationship with her . Last menstrual period was 2 weeks ago. No concern for . No fevers, chills, body aches. Denies any back pain or abdominal pain. No nausea vomiting or diarrhea. On exam patient has bowel sounds present all 4 quadrants, no tenderness to palpation, and no CVA tenderness. Urine dip ordered Labs: Urine dip ordered and was positive for 1+ protein, ketones, and bili. We will send urine for culture. Plan: I suspect patient likely has dysuria possibly due to cystitis and probable yeast infection. Prescription for Pyridium and Diflucan was sent to the pharmacy. Supportive measures were discussed with the patient and they voiced understanding discharge instructions and agrees to treatment plan. Return precautions reviewed Differential Diagnosis Differential diagnosis: Likely urinary tract infection and cystitis Lab Data Labs: Lab Results 11/21/24 Range/Units 12:29 POC Urine Color Yellow POC Urine Clarity Clear POC Urine pH 5.5 POC Ur Specif [place] 1.030 POC Urine Protein 1+ (Negative) POC Ur Glucose (UA) Negative (Negative) POC Urine Ketones 2+ (Negative) POC Urine Blood Trace (Negative) POC Urine Nitrite Negative (Negative) POC Urine Bilirubin 1+ (Negative) POC Urine Urobilinogen 0.2 POC U Leukocyte Esteras Negative (Negative) Discharge Plan Discharge Clinical Impression: Dysuria, Vaginal burning Patient Disposition: Home Condition: Stable Instructions: Antibiotic Form, Yeast Infection (ED), Dysuria (ED) Additional Instructions: Urinalysis shows protein, ketones, and bili in your urine. No sign of infection. We will send urine for culture. Take Pyridium as prescribed Take Diflucan as prescribed Increase fluids and stay well hydrated Wipe front to back. May use wet wipes. Avoid tub baths If sexually active- pee before and after intercourse. Wear cotton panties Avoid tight clothing up against the genitals Follow up with your PCP in 1 week if symptoms persist. Patient Language: Bulgarian Prescriptions: New phenazopyridine [Pyridium] 200 mg tablet 200 mg PO TID PRN (Reason: pain) Qty: 6 0RF fluconazole 150 mg tablet 150 mg PO ONCE Qty: 2 0RF Rx Instructions: as a single dose. May repeat in 72 hours if needed. Follow-up/Referrals: PHYSICIAN,PLATFORM MATERIAL HANDLER MANAGER [Primary Care Provider, Internal Medicine] Time of Disposition: 12:39 Quality NIHSS Nursing Documentation ED NIHSS nursing documentation: reviewed/agree
[2024-11-21 12:22] VITALS: BP 124/87; PULSE 91; RESP 18; TEMP 36.6; O2SAT 100
[2024-11-21 12:32] LABS: EDUAAPPEAR Clear; EDUABILI 1+ (Negative); EDUABLOOD Trace (Negative); EDUACOLOR1 Yellow; EDUAGLUCOSE Negative (Negative); EDUAKETONE 2+ (Negative); EDUALEUKO Negative (Negative); EDUANITRATE Negative (Negative); EDUAPH 5.5; EDUAPROTEIN 1+ (Negative); EDUASPGRAVITY 1.030; EDUAUROBILI 0.2
== END 2024-11-21 12:46 | disposition home or self-care (01) ==
PROVIDERS: Emergency Provider Nurse Practitioner Family
DX: R30.0 Dysuria (principal); R10.2 Pelvic and perineal pain
CPT/HCPCS: 81003; 87086; 99213; G0463